=== PATIENT | female | born 1980 | race Asian ===

== ENCOUNTER 2019-08-18 03:02 | Emergency (ER) | payer OTHER ==
[~2019-08-18] VITALS: Ht 167.6 cm; Wt 81.0 kg
[2019-08-18 03:07] VITALS: Ht 167.6 cm; Wt 81.0 kg
[2019-08-18 04:23] LABS: microscopic required? YES; urine erythrocyte 2+ (NEGATIVE)
[2019-08-18 06:39] VITALS: BP 111/62
== END 2019-08-18 06:39 | disposition home or self-care (01) ==
LOC: ED 03:02
PROVIDERS: Emergency Medicine
DX: N83.201 Unspecified ovarian cyst, right side (principal); D25.9 Leiomyoma of uterus, unspecified; Z90.89 Acquired absence of other organs
CPT/HCPCS: Q0092